=== PATIENT | female | born 1945 | race Caucasian/White ===

== ENCOUNTER 2016-12-29 16:26 | Inpatient (IN) | payer OTHER ==
[2016-12-29 18:37] VITALS: BMI 22.6
--- NOTE | 2016-12-29 19:14 | HP ---
CIWA Score - CIWA Score Nausea/Vomitin Muscle Tremors: 3 Anxiety: 3 Agitation: 3 Paroxysmal Sweats: 2 Orientation: 0-Oriented Tacttile Disturbances: 2-Mild Itch/Numbness/Burn Auditory Disturbances: 2-Mild Harshness/Frighten Visual Disturbances: 2-Mild Sensitivity Headache: 2-Mild CIWA-Ar Total Score: 22 Admission ROS BHS - HPI Chief Complaint: I NEED HELP TO STOP DRINKING ALCOHOL Allergies/Adverse Reactions: Allergies Allergy/AdvReac Type Severity Reaction Status Date / Time No Known Allergies Allergy Verified 12/29/16 20:57 History of Present Illness: THIS 71 YEARS OLD FEMALE WITH ALCOHOL DEPENDENCE,SEEKING DETOX,LAST TREATMENT [facility] 12/10/15 TO 12/14/15 ANXIETY,INSOMNIA NO SIGNIFICANT PERIOD OF SOBRIETY Exam Limitations: No Limitations - Ebola screening Have you traveled outside of the country in the last 21 days: No Have you had contact with anyone from an Ebola affected area: No Have you been sick,other than usual withdrawal symptoms: No Do you have a fever: No - Review of Systems Constitutional: Loss of Appetite, Malaise, Night Sweats, Changes in sleep, Weakness, Unintentional Wgt. Loss EENT: reports: Nose Congestion Respiratory: reports: No Symptoms reported Cardiac: reports: No Symptoms Reported GI: reports: Diarrhea, Nausea, Vomiting, Abdominal cramping : reports: No Symptoms Reported Musculoskeletal: reports: Back Pain, Muscle Pain Neuro: reports: Tremors Hematology: reports: No Symptoms Reported Psychiatric: reports: No Sypmtoms Reported, Judgement Intact, Mood/Affect Appropiate, Orientated x3, Anxious Patient History - Patient Medical History Hx Anemia: No Hx Asthma: No Hx Chronic Obstructive Pulmonary Disease (COPD): No Hx Cardiac Disorders: No Hx Congestive Heart Failure: No Hx Hypertension: Yes (NO MEDICATION) Hx Hypercholesterolemia: No Hx Pacemaker: No HX Cerebrovascular Accident: No Hx Seizures: No Hx Dementia: No Hx Diabetes: No Hx Gastrointestinal Disorders: No Hx Liver Disease: No Hx Genitourinary Disorders: No Hx Sexually Transmitted Disorders: No Hx Renal Disease (ESRD): No Hx Thyroid Disease: No Hx Human Immunodeficiency Virus (HIV): No (last 2014 negative) Hx Hepatitis C: No Hx Depression: Yes (on medications) Hx Suicide Attempt: No Hx Bipolar Disorder: No Hx Schizophrenia: No Other Medical History: NO SUICIDAL,NO HOMICIDAL - Patient Surgical History Past Surgical History: Yes Hx Neurologic Surgery: No Hx Cataract Extraction: No Hx Cardiac Surgery: No Hx Lung Surgery: No Hx Breast Surgery: No Hx Breast Biopsy: No Hx Abdominal Surgery: No Hx Appendectomy: No Hx Cholecystectomy: No Hx Genitourinary Surgery: No Hx Section: No Hx Orthopedic Surgery: No Hx Hysterectomy: No Other Surgical History: TUBAL LIGATION IN 1965 Anesthesia Reaction: No - PPD History Previous Implant?: Yes Documented Results: Negative w/o proof Date: 12/12/15 Results: 0 mm PPD to be Administered?: Yes - Reproductive History Patient is a Female of Child Bearing Age (11 -55 yrs old): No Patient : No - Smoking Cessation Smoking history: Former smoker Have you smoked in the past 12 months: No Aproximately how many cigarettes per day: 20 If you are a former smoker, when did you quit?: 25 YRS AGO Hx Chewing Tobacco Use: No Initiated information on smoking cessation: Yes 'Breaking Loose' booklet given: 12/29/16 - Substance & Tx. History Hx Alcohol Use: Yes Hx Substance Use: No Substance Use Type: Alcohol Hx Substance Use Treatment: Yes ([facility] FROM 12/10/15 TO 12/14/15) - Substances Abused Alcohol Route: Oral Frequency: Daily Amount used: 750 ML OF WINE Age of first use: 20 Date of Last Use: 12/29/16 Family Disease History - Family Disease History Family Disease History: CA: Mother (COLON; ), Other: Father (ETOH DEPENDENCE), Brother (ETOH DEPENDENT) Admission Physical Exam S - Vital Signs Vital Signs: Vital Signs - 24 hr 12/29/16 18:20 Temperature 98.1 F Pulse Rate 73 Respiratory 18 Rate Blood Pressure 113/78 - Physical General Appearance: Yes: Moderate Distress, Tremorous, Irritable, Sweating, Anxious HEENTM: Yes: Normal ENT Inspection, BELLE, Pharynx Normal Respiratory: Yes: Lungs Clear, Normal Breath Sounds, No Respiratory Distress Neck: Yes: Within Normal Limits, Supple, Trachea in good position Breast: Yes: Breast Exam Deferred Cardiology: Yes: Within Normal Limits, Regular Rhythm, Regular Rate, S1, S2 Abdominal: Yes: Within Normal Limits, Normal Bowel Sounds, Non Tender, Flat, Soft Genitourinary: Yes: Within Normal Limits Back: Yes: Muscle Spasm Musculoskeletal: Yes: Back pain, Muscle Pain Extremities: Yes: Within Normal Limits, Normal Range of Motion, Tremors, Other ( ARTHRITIS BOTH HANDS) Neurological: Yes: Within Normal Limits, 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 II-XII NML intact, Fully Oriented, Alert Integumentary: Yes: Dry Lymphatic: Yes: Within Normal Limits - Diagnostic (1) Alcohol dependence with uncomplicated withdrawal Current Visit: No Status: Chronic (2) Arthritis Current Visit: No Status: Chronic (3) HTN (hypertension) Current Visit: No Status: Chronic Qualifiers: Hypertension type: essential hypertension Qualified Code(s): I10 - Essential (primary) hypertension; I10 - Essential (primary) hypertension; I10 - Essential (primary) hypertension (4) Insomnia secondary to depression with anxiety Current Visit: Yes Status: Acute Cleared for Admission [facility] - Detox or Rehab [facility] Level of Care: Medically Managed Detox Regimen/Protocol: Librium [facility] Breath Alcohol Content Breath Alcohol Content: 0.030 Urine Pregancy Test - Result Urine Test Results: Negative- NO Line Present Urine Drug Screen - Results Drug Screen Negative: Yes
[2016-12-29] MEDS ORDERED: IBUPROFEN 400 MG TABLET (FP) PO PRN (19:30)
[2016-12-29] MEDS ORDERED: chlordiazePOXIDE HCL 25 MG CAPSULE PO ONE (19:30)
[2016-12-29] MEDS ORDERED: MAG HYDROX/AL HYDROX/SIMETH 30 ML UNIT-DOSE CUP PO PRN (19:30)
[2016-12-29] MEDS ORDERED: guaiFENesin/D-METHORPHAN HB 10 ML UNIT-DOSE CUPS PO PRN (19:30)
[2016-12-29] MEDS ORDERED: MAGNESIUM HYDROX 2400MG/30ML ORAL SUSPENSION 30 ML CUP PO PRN (19:30)
[2016-12-29] MEDS ORDERED: ACETAMINOPHEN 325 MG TABLET (FP) PO PRN (19:30)
[2016-12-29] MEDS ORDERED: MENTHOL/PHENOL 1 EACH UD MM PRN (19:30)
[2016-12-29] MEDS ORDERED: LOPERAMIDE HCL 2 MG CAPSULE PO PRN (19:30)
[2016-12-29] MEDS ORDERED: MAGNESIUM CITRATE 300 ML BOTTLE PO PRN (19:30)
[2016-12-29] MEDS ORDERED: P-EPHED 60MG/TRIPROLIDI 2.5MG TABLET PO PRN (19:30)
[2016-12-29] MEDS: diphenhydrAMINE HCL 50 MG CAPSULE PO PRN (22:46)
[2016-12-29] MEDS: chlordiazePOXIDE HCL 25 MG CAPSULE PO SCH (22:46)
[2016-12-29] MEDS: THIAMINE HCL 100 MG TABLET (FP) PO SCH (22:46)
[2016-12-30] MEDS: diphenhydrAMINE HCL 50 MG CAPSULE PO PRN (00:35)
[2016-12-30] MEDS: chlordiazePOXIDE HCL 25 MG CAPSULE PO PRN ×2 (02:03→12:52)
[2016-12-30] MEDS: chlordiazePOXIDE HCL 25 MG CAPSULE PO SCH ×4 (05:26→22:39)
[2016-12-30 07:36] LABS: URINE APPEARANCE CLEAR; URINE BILIRUBIN NEGATIVE (NEGATIVE); URINE BLOOD NEGATIVE (NEGATIVE); URINE COLOR STRAW; URINE GLUCOSE (UA) NEGATIVE (NEGATIVE); URINE KETONE NEGATIVE (NEGATIVE); URINE LEUK ESTERASE NEGATIVE (NEGATIVE); URINE NITRITE NEGATIVE (NEGATIVE); URINE PROTEIN NEGATIVE (NEGATIVE); URINE UROBILINOGEN NEGATIVE mg/dL (0.2-1.0)
[2016-12-30 10:03] LABS: MCH 30.2 pg (25.7-33.7); MCHC 33.3 g/dl (32.0-36.0); MEAN CELL VOLUME 90.7 fl (80-96); MEAN PLT VOLUME 8.7 fl (7.5-11.1); PLATELET COUNT 221 K/MM3 (134-434); WHITE BLOOD COUNT 9.2 K/mm3 (4.0-10.0)
[2016-12-30] MEDS: PRENATAL VITAMINS W/ FOLIC ACID TABLET (FP) PO SCH (10:43)
[2016-12-30 10:55] LABS: ALBUMIN 3.2 g/dl (3.4-5.0); ALK PHOS 107 U/L (45-117); ANION GAP 6 (8-16); BILIRUBIN,TOTAL 0.7 mg/dL (0.2-1.0); CALCIUM 9.1 mg/dL (8.5-10.1); CO2 28 mmol/L (21-32); CREATININE 0.7 mg/dL (0.55-1.02); GLUCOSE,RANDOM 94 mg/dL (74-106); SGPT/ALT 25 U/L (12-78); TOT PROT 6.7 g/dl (6.4-8.2)
[2016-12-30 10:57] LABS: SGOT/AST 23 U/L (15-37)
--- NOTE | 2016-12-30 11:29 | CONSULT ---
[facility] Psychiatric Consult - Data Date of interview: 12/30/16 Admission source: Self-referred Identifying data: Ms Villagomez is a 71 years old , unemployed on social security. domiciled, living with seeking detox treatment for alcohol Substance Abuse History: Reports history of alcohol use. She started drinking at age 20, consumes 750 ml of wine daily. Last drink on 12/29/16 Medical History: Significant for HTN, and histiry o surgery for Tubal ligation in 1965. Smokes cigarettes 1ppd Psychiatric History: Reports history of MDD diagnosed in the late 80's while in a study at [facility]. Reports being prescribed Lexapro 10 mg po daily, Remeron 15 mg po HS, Effexor 37.5 mg po daily and Klonopin i mg po daily by her primary care physician. Denies history of previous psychiatric hospitalization or suicidal attempt. At present, reports feelinganxious and sleeping poorly Physical/Sexual Abuse/Trauma History: Denies historyb of verbal, physical or sexual abuse as well as DV relationship Additional Comment: No criminal history Mental Status Exam - Mental Status Exam Alert and Oriented to: Time, Place, Person Cognitive Function: Fair Patient Appearance: Well Groomed Mood: Anxious Affect: Appropriate Patient Behavior: Cooperative Speech Pattern: Clear Voice Loudness: Normal Thought Process: Intact, Goal Oriented Thought Disorder: Not Present Hallucinations: Denies Suicidal Ideation: Denies Homicidal Ideation: Denies Insight/Judgement: Poor Sleep: Poorly Appetite: Poor Muscle strength/Tone: Normal Gait/Station: Normal Psychiatric Findings - Problem List ([place] 1, 2,3) (1) MDD (major depressive disorder) Current Visit: No Status: Chronic Qualifiers: Major depression recurrence: recurrent (2) Alcohol-induced mood disorder Current Visit: Yes Status: Acute (3) Alcohol-induced sleep disorder Current Visit: Yes Status: Acute (4) Nicotine dependence Current Visit: No Status: Chronic Qualifiers: Nicotine product type: cigarettes Substance use status: uncomplicated Qualified Code(s): F17.210 - Nicotine dependence, cigarettes, uncomplicated; F17.210 - Nicotine dependence, cigarettes, uncomplicated (5) HTN (hypertension) Current Visit: No Status: Chronic Qualifiers: Hypertension type: essential hypertension Qualified Code(s): I10 - Essential (primary) hypertension; I10 - Essential (primary) hypertension; I10 - Essential (primary) hypertension - Initial Treatment Plan Initial Treatment Plan: 1) Continue Lexapro 10 mg po daily, Remeron 15 mg po HS and Effexor 37.5 mf g po daily. 2) Continue inpatient detoxification
[2016-12-30] MEDS: hydrOXYzine PAMOATE 25 MG CAPSULE (FP) PO PRN ×2 (11:54→18:57)
[2016-12-30] MEDS ORDERED: FLU VACCINE QUAD 60 MCG/0.5 ML (MDV 17-18) IM ONE (12:00)
[2016-12-30] MEDS: ESCITALOPRAM OXALATE 10 MG TABLET (FP) PO SCH (12:52)
--- NOTE | 2016-12-30 14:11 | PN ---
S CIWA - CIWA Score Nausea/Vomitin Muscle Tremors: 3 Anxiety: 3 Agitation: 2 Paroxysmal Sweats: 1-Minimal Palms Moist Orientation: 0-Oriented Tacttile Disturbances: 1-Very Mild Itch/Numbness Auditory Disturbances: 1-Very Mild Visual Disturbances: 0-None Headache: 2-Mild CIWA-Ar Total Score: 16 BHS Progress Note (SOAP) Subjective: ALERT,IRRITABLE,ANXIOUS,INTERRUPTED SLEEP,TREMOR Objective: 12/30/16 14:09 Vital Signs Temperature 97.1 F L 12/30/16 14:00 Pulse Rate 79 12/30/16 14:00 Respiratory Rate 18 12/30/16 14:00 Blood Pressure 129/69 12/30/16 14:00 O2 Sat by Pulse Oximetry (%) EKG SINUS BRADYCARDIA WITH SINUS ARRHYTHMIA RATE 55/MIN NO CHEST PAIN,NO SOB,NO DIZZINESS Laboratory Last Values WBC 9.2 K/mm3 (4.0-10.0) 12/30/16 08:00 RBC 4.62 M/mm3 (3.60-5.2) 12/30/16 08:00 Hgb 14.0 GM/dL (10.7-15.3) 12/30/16 08:00 Hct 41.9 % (32.4-45.2) 12/30/16 08:00 MCV 90.7 fl (80-96) 12/30/16 08:00 MCH 30.2 pg (25.7-33.7) 12/30/16 08:00 MCHC 33.3 g/dl (32.0-36.0) 12/30/16 08:00 RDW 15.0 % (11.6-15.6) 12/30/16 08:00 Plt Count 221 K/MM3 (134-434) 12/30/16 08:00 MPV 8.7 fl (7.5-11.1) 12/30/16 08:00 Sodium 137 mmol/L (136-145) 12/30/16 08:00 Potassium 4.7 mmol/L (3.5-5.1) 12/30/16 08:00 Chloride 103 mmol/L (98-107) 12/30/16 08:00 Carbon Dioxide 28 mmol/L (21-32) D 12/30/16 08:00 Anion Gap 6 (8-16) L 12/30/16 08:00 BUN 10 mg/dL (7-18) D 12/30/16 08:00 Creatinine 0.7 mg/dL (0.55-1.02) D 12/30/16 08:00 Creat Clearance w eGFR > 60 (>60) 12/30/16 08:00 Random Glucose 94 mg/dL (74-106) 12/30/16 08:00 Calcium 9.1 mg/dL (8.5-10.1) 12/30/16 08:00 Total Bilirubin 0.7 mg/dL (0.2-1.0) D 12/30/16 08:00 AST 23 U/L (15-37) 12/30/16 08:00 ALT 25 U/L (12-78) 12/30/16 08:00 Alkaline Phosphatase 107 U/L (45-117) 12/30/16 08:00 Total Protein 6.7 g/dl (6.4-8.2) 12/30/16 08:00 Albumin 3.2 g/dl (3.4-5.0) L 12/30/16 08:00 Urine Color Straw 12/29/16 22:45 Urine Appearance Clear 12/29/16 22:45 Urine pH 5.0 (5.0-8.0) 12/29/16 22:45 Ur Specific [place] <= 1.005 (1.005-1.025) 12/29/16 22:45 Urine Protein Negative (NEGATIVE) 12/29/16 22:45 Urine Glucose (UA) Negative (NEGATIVE) 12/29/16 22:45 Urine Ketones Negative (NEGATIVE) 12/29/16 22:45 Urine Blood Negative (NEGATIVE) 12/29/16 22:45 Urine Nitrite Negative (NEGATIVE) 12/29/16 22:45 Urine Bilirubin Negative (NEGATIVE) 12/29/16 22:45 Urine Urobilinogen Negative mg/dL (0.2-1.0) 12/29/16 22:45 RPR Titer Nonreactive (NONREACTIVE) 12/30/16 08:00 Assessment: 12/30/16 14:11 WITHDRAWAL SYMPTOM Plan: CONTINUE DETOX
[2016-12-30] MEDS: VENLAFAXINE HCL 37.5 MG E.R. CAPSULE (FP) PO SCH (14:34)
--- NOTE | 2016-12-30 20:48 | EKG ---
Test Reason : Blood Pressure : / mmHG Vent. Rate : 058 BPM Atrial Rate : 058 BPM P-R Int : 128 ms QRS Dur : 090 ms QT Int : 402 ms P-R-T Axes : 067 077 070 degrees QTc Int : 394 ms SINUS BRADYCARDIA WITH SINUS ARRHYTHMIA OTHERWISE NORMAL ECG NO PREVIOUS ECGS AVAILABLE Confirmed by AJIT HASSAN, DAYAMI ([id number]) on 12/30/2016 8:48:14 PM Referred By: Confirmed By:DAYAMI FONG MD
[2016-12-30] MEDS: MIRTAZAPINE 15 MG TABLET (FP) PO SCH (22:39)
[2016-12-30] MEDS: THIAMINE HCL 100 MG TABLET (FP) PO SCH (22:39)
[2016-12-31] MEDS: chlordiazePOXIDE HCL 25 MG CAPSULE PO SCH ×3 (07:10→17:37)
[2016-12-31] MEDS: PRENATAL VITAMINS W/ FOLIC ACID TABLET (FP) PO SCH (10:29)
[2016-12-31] MEDS: VENLAFAXINE HCL 37.5 MG E.R. CAPSULE (FP) PO SCH (10:29)
[2016-12-31] MEDS: ESCITALOPRAM OXALATE 10 MG TABLET (FP) PO SCH (10:29)
--- NOTE | 2016-12-31 11:37 | PN ---
[facility] CIWA - CIWA Score Nausea/Vomitin-No Nausea/No Vomiting Muscle Tremors: 3 Anxiety: 3 Agitation: 3 Paroxysmal Sweats: 3 Orientation: 0-Oriented Tacttile Disturbances: 0-None Auditory Disturbances: 0-None Visual Disturbances: 0-None Headache: 0-None Present CIWA-Ar Total Score: 12 S Progress Note (SOAP) Subjective: little sweats chills anxiety feeling better Objective: 12/31/16 11:36 Vital Signs Temperature 97 F L 12/31/16 09:37 Pulse Rate 92 H 12/31/16 09:37 Respiratory Rate 16 12/31/16 09:37 Blood Pressure 137/81 12/31/16 09:37 O2 Sat by Pulse Oximetry (%) Laboratory Tests 12/29/16 12/30/16 12/30/16 22:45 08:00 08:00 WBC 9.2 RBC 4.62 Hgb 14.0 Hct 41.9 MCV 90.7 MCH 30.2 MCHC 33.3 RDW 15.0 Plt Count 221 MPV 8.7 Sodium 137 Potassium 4.7 Chloride 103 Carbon Dioxide 28 D Anion Gap 6 L BUN 10 D Creatinine 0.7 D Creat Clearance w eGFR > 60 Random Glucose 94 Calcium 9.1 Total Bilirubin 0.7 D AST 23 ALT 25 Alkaline Phosphatase 107 Total Protein 6.7 Albumin 3.2 L Urine Color Straw Urine Appearance Clear Urine pH 5.0 Ur Specific [place] <= 1.005 Urine Protein Negative Urine Glucose (UA) Negative Urine Ketones Negative Urine Blood Negative Urine Nitrite Negative Urine Bilirubin Negative Urine Urobilinogen Negative RPR Titer 12/30/16 08:00 WBC RBC Hgb Hct MCV MCH MCHC RDW Plt Count MPV Sodium Potassium Chloride Carbon Dioxide Anion Gap BUN Creatinine Creat Clearance w eGFR Random Glucose Calcium Total Bilirubin AST ALT Alkaline Phosphatase Total Protein Albumin Urine Color Urine Appearance Urine pH Ur Specific [place] Urine Protein Urine Glucose (UA) Urine Ketones Urine Blood Urine Nitrite Urine Bilirubin Urine Urobilinogen RPR Titer Nonreactive AAOx3 ambulating no acute distress Assessment: 12/31/16 11:37 mild withdrawal sx Plan: continue detox increase fluids d/c in am
[2016-12-31] MEDS: hydrOXYzine PAMOATE 25 MG CAPSULE (FP) PO PRN ×2 (13:53→18:34)
[2016-12-31] MEDS: chlordiazePOXIDE 5 MG CAPSULE PO SCH (22:10)
[2016-12-31] MEDS: MIRTAZAPINE 15 MG TABLET (FP) PO SCH (22:11)
[2016-12-31] MEDS: THIAMINE HCL 100 MG TABLET (FP) PO SCH (22:11)
[2017-01-01] MEDS: chlordiazePOXIDE 5 MG CAPSULE PO SCH ×2 (06:01→10:45)
[2017-01-01] MEDS: ESCITALOPRAM OXALATE 10 MG TABLET (FP) PO SCH (09:25)
[2017-01-01] MEDS: VENLAFAXINE HCL 37.5 MG E.R. CAPSULE (FP) PO SCH (09:25)
[2017-01-01] MEDS: PRENATAL VITAMINS W/ FOLIC ACID TABLET (FP) PO SCH (09:25)
--- NOTE | 2017-01-01 09:36 | DS ---
[facility] Detox Discharge Summary Admission Date: 12/29/16 Discharge Date: 01/01/17 - History Present History: Alcohol Dependence - Physical Exam Results Vital Signs: Vital Signs Temperature 97.2 F L 01/01/17 06:00 Pulse Rate 53 L 01/01/17 06:00 Respiratory Rate 18 01/01/17 06:00 Blood Pressure 116/70 01/01/17 06:00 O2 Sat by Pulse Oximetry (%) - Treatment Hospital Course: Detox Protocol Followed, Detoxed Safely, Responded well, Discharged Condition Good, Rehab Referral Accepted - Medication Discharge Medications: Ambulatory Orders Clonazepam [Klonopin] 1 mg PO DAILY 12/29/16 Escitalopram Oxalate [Lexapro -] 10 mg PO DAILY #30 mg 12/30/16 Mirtazapine [Remeron -] 15 mg PO HS #30 tablet 12/30/16 Venlafaxine HCl ER [Effexor Xr -] 37.5 mg PO DAILY #30 mg 12/30/16 - Diagnosis (1) Alcohol dependence with uncomplicated withdrawal Current Visit: Yes Status: Chronic (2) Chronic low back pain Current Visit: Yes Status: Chronic Qualifiers: Back pain laterality: unspecified (3) Depression Current Visit: No Status: Chronic Qualifiers: Depression Type: unspecified Qualified Code(s): F32.9 - Major depressive disorder, single episode, unspecified; F32.9 - Major depressive disorder, single episode, unspecified; F32.9 - Major depressive disorder, single episode, unspecified (4) HTN (hypertension) Current Visit: No Status: Chronic Qualifiers: Hypertension type: essential hypertension Qualified Code(s): I10 - Essential (primary) hypertension; I10 - Essential (primary) hypertension; I10 - Essential (primary) hypertension (5) Nicotine dependence Current Visit: Yes Status: Chronic Qualifiers: Nicotine product type: cigarettes Substance use status: uncomplicated Qualified Code(s): F17.210 - Nicotine dependence, cigarettes, uncomplicated; F17.210 - Nicotine dependence, cigarettes, uncomplicated - AMA Did Patient Leave Against Medical Advice: No
[2017-01-01 10:58] VITALS: BP 135/74; PULSE 67; TEMP 97.3
[2017-01-01] MEDS ORDERED: chlordiazePOXIDE HCL 10 MG CAPSULE PO SCH (23:00)
== END 2017-01-01 10:10 | disposition home or self-care (01) | DRG 897 ==
LOC: YASAS 16:26 → Y6N 19:41
PROVIDERS: ADMIT Internal Medicine; ATTEND Internal Medicine
PROC: HZ2ZZZZ Detoxification Services for Substance Abuse Treatment (ICD-10-PCS; principal; 2016-12-29)
DX: F10.230 Alcohol dependence with withdrawal, uncomplicated (principal); F17.210 Nicotine dependence, cigarettes, uncomplicated; F32.9 Major depressive disorder, single episode, unspecified; F10.24 Alcohol dependence with alcohol-induced mood disorder; F10.282 Alcohol dependence with alcohol-induced sleep disorder; F41.8 Other specified anxiety disorders; M54.5 Low back pain; G89.29 Other chronic pain
CPT/HCPCS: 36415; 80053; 81003; 85027; 86593; 90688; 93005; 93010; G0008